=== PATIENT | female | born 1995 | race Caucasian/White ===

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

== ENCOUNTER 2017-11-04 14:27 | Inpatient (IN) | payer OTHER ==
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
[2017-11-04 15:13] LABS: PLATELET COUNT 320 10^3/uL (150-400)
[2017-11-04] MEDS ORDERED: LORazepam 1 MG TAB ONE (21:49)
[2017-11-04] MEDS ORDERED: LORazepam 1 MG TAB PO ONE (21:52)
[2017-11-04] MEDS ORDERED: OLANZapine DISINTEGR 5 MG TAB ONE (22:13)
[2017-11-04] MEDS ORDERED: OLANZapine DISINTEGR 5 MG TAB PO ONE (22:13)
[2017-11-05] MEDS ORDERED: ACETAMINOPHEN 325 MG TAB PO PRN (00:33)
[2017-11-05] MEDS ORDERED: MAGNESIUM HYDROXIDE 30 ML UDCUP PO PRN (00:33)
[2017-11-05] MEDS ORDERED: MAG HYDROX/AL HYDROX/SIMETH 30 ML UDCUP PO PRN (00:33)
[2017-11-05] MEDS ORDERED: OLANZapine DISINTEGR 5 MG TAB PO PRN (00:35)
[2017-11-05] MEDS: NICOTINE POLACRILEX 2 MG GUM B PRN (16:23)
[2017-11-05] MEDS: QUEtiapine FUMARATE 50 MG TAB PO SCH (19:01)
[2017-11-05] MEDS: LORazepam 0.5 MG TAB PO PRN (19:01)
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
--- NOTE | 2017-11-05 21:21 | BCON ---
[f rep st] BEHAVIORAL HEALTH CONSULTATION INTERNAL MEDICINE CONSULTATION DATE OF CONSULTATION: 11/05/2017 REFERRING PHYSICIAN: Navin Armendariz MD REASON FOR REFERRAL: Medical clearance for inpatient behavioral health stay. HISTORY OF PRESENT ILLNESS: This patient was referred to the emergency department from the [facility]. She was found to be disheveled and delusional, and was admitted for further psychiatric care. She currently is without any acute medical complaints. PAST MEDICAL HISTORY: 1. Depression. 2. Minor lacerations with suturing. MEDICATIONS: She will use occasional lorazepam. She reports that she stopped using fluoxetine several months ago. SOCIAL HISTORY: She is a student. She lives [place] campus. She reports that she uses occasional tobacco and occasional alcohol. FAMILY HISTORY: Noncontributory. REVIEW OF SYSTEMS: She reports several pounds weight loss. She thinks it has happened because she has been busy this summer, but she does not elaborate further regarding her appetite and weight loss. She denies nausea, vomiting, constipation, or diarrhea. She denies fevers or chills. She denies cough or dyspnea. Otherwise, a 10-point review of systems is negative. PHYSICAL EXAM: VITAL SIGNS: Blood pressure is 115/60, heart rate is 90, respiratory rate is 14, oxygen saturation at approximately midnight was 91% on room air. Temperature is 36.6 degrees centigrade. Her weight is 49.9 kg for a body mass index of 18.9. GENERAL: This is a thin woman, appears her chronologic age, cooperative and in no acute distress. HEENT: Extraocular movements are intact. Pupils are equal, round, reactive to light. Mucous membranes are moist. Dentition is in good condition. She has an uncrowded airway, Mallampati class 1. NECK: Supple. HEART: Regular rate and rhythm with no murmurs, rubs, or gallops. LUNGS: Clear to auscultation bilaterally. ABDOMEN: Benign. EXTREMITIES: There is no cyanosis, clubbing, or edema. NEUROLOGIC: She is alert and oriented x3. Cranial nerves 2-12 are grossly intact. There is no focal weakness. Sensation is intact to light touch and gait is within normal limits. LABORATORY STUDIES: From yesterday in the emergency department: CBC was completely normal. Serum chemistry showed normal renal function and electrolytes. Beta hCG was negative for . Toxicology screen in the serum was negative for ethyl alcohol, and in the urine was non-negative for marijuana, but negative for other substances of abuse. ASSESSMENT/RECOMMENDATIONS: 1. Psychiatric issues, pending further evaluation and management per Psychiatry and the mental health team. 2. Weight loss, unclear etiology. Advise observing for normal oral caloric intake while she is on the unit. I see no medical contraindications to this patient's continued stay on the inpatient behavioral health unit or to any psychiatric medications or procedures. Thank you very much for including me in the care of this patient, and please do not hesitate to contact me or the hospitalist service should there be need for further medical evaluation. /[id number]/MODL MTDD
[2017-11-06] MEDS ORDERED: XULANE TD SCH (14:15)
--- NOTE | 2017-11-06 15:53 | SOAPPROG ---
SOAP Progress Note Assessment/Plan: Assessment: Plan: 11/06/17 15:55 Remains labile and paranoid. Also continues to struggle with organization of her thoughts. Will CCM. Subjective: Pt seen, discussed with staff. Tearful, anxious. I discussed the plan to continue current meds and allow her more time to stabilize. She states she understands this and discussed it at length with the CC just before she and I talked. She then becomes tearful and states repeatedly that, "All I wanted was help for my trauma and you locked me up and told me I'm schizophrenic." I emphasized to her that her psychotic sx's were most likely due to the cannabis use and that I recommend that she cease all future use. I discussed with her the possibility of the psychotic sx's remaining permanently if she continues to use. She then becomes more tearful and upset and asks to stop interview. Objective: Vital Signs Temp Pulse Resp BP Pulse Ox 36.6 C 86 14 113/68 96 11/06/17 06:00 11/06/17 06:00 11/06/17 06:00 11/06/17 06:00 11/06/17 06:00 MSE: Anxious, upset. Affect is tearful, expansive. Mood is "bad." TP mostly linear, though she perseverates on "trauma issues" and derails at times. TP reveals no mention of bizarre thoughts or IOR's, though she is quite guarded about these topics. - Time Spent With Patient Time Spent With Patient: 25" ICD10 Worksheet Patient Problems: Problems Problem Status Onset Acute psychosis Acute
[2017-11-06] MEDS: NICOTINE POLACRILEX 2 MG GUM B PRN (19:52)
[2017-11-06] MEDS: QUEtiapine FUMARATE 50 MG TAB PO SCH (20:59)
[2017-11-06] MEDS: LORazepam 0.5 MG TAB PO PRN (21:52)
[2017-11-07 06:32] VITALS: BP 102/58
== END 2017-11-07 13:50 | disposition home or self-care (01) | DRG 897 ==
LOC: BBEH 11-05 00:18
PROVIDERS: ADMIT Psychiatry & Neurology Psychiatry; ATTEND Psychiatry & Neurology Psychiatry
DX: F12.959 Cannabis use, unspecified with psychotic disorder, unspecified (principal); F43.10 Post-traumatic stress disorder, unspecified
CPT/HCPCS: 80305; G0480